=== PATIENT | male | born 1945 | race Caucasian/White ===

== ENCOUNTER 2020-05-02 00:55 | Outpatient (CLI) | payer OTHER, SELFPAY ==
--- NOTE | 2020-05-02 10:30 | DI.NM_ITS ---
APPROVED REPORT Exam: Pharmacologic Patient Location: Out-Patient Room/Bed: Stress Nurse: Celia Sotelo RN BMI: 20.67 Baseline Rhythm: [employer] RBBB Medical History Medical History: CAD s/p stent, HTN, Hyperlipidemia, Obstructive sleep apnea, RBBB, , PAD, PAD Cardiac Medications: Atorvastatin/ Lipitor, Clopidogrel/ Plavix, Lisinopril, Metoprolol Succinate, sp ironolactone , Allergies: No known drug allergies Cardiac Risk Factors: HTN, Hyperlipidemia, FHX of CAD, Smoking, PVD, CVD Previous Cardiac Procedures: PCI Pretest Chest Pain Characteristics: No chest pain Exercise History: Indeterminate Physical Disabilities: Back Lung Sounds: Clear to auscultation Heart Sounds: Regular Stress Test Details Test: Pharmacologic stress testing performed using 0.4 mg of regadenoson per 5 mL given IV over 10 s econds. Reason for pharmacologic stress test: physical limitation. Nuclear Acquisition: Rest Tc-99m/Stress Tc-99m 1 day Rest Isotope: Tc-99m Sestamibi. Dose: 11 Date: 05/02/2020 Injection Time: 1040 Stress Isotope: Tc-99m Sestamibi. Dose: 37 Date: 05/02/2020 Injection Time: 1255 HR Resting HR Supine: 61 bpm Max Heart Rate (APMHR): 143 bpm Target HR (85% APMHR): 121 bpm Max HR Achieved: 83 bpm % of APMHR: 58 Recovery HR: 77 bpm HR response to stress: Normal HR response to stress BP Resting BP Supine: 122/76 mmHg Max BP: 122/76 mmHg Recovery BP: 118/74 mmHg BP response to stress: Normal blood pressure response to stress. ECG Resting ECG: Sinus Rhythm Stress ECG: Sinus Rhythm ST Change: Normal Maximum ST Deviation: 1.5 mm Arrhythmia: None Recovery ECG: Sinus Rhythm Recovery ST Change: Normal Recovery Arrhythmia: None Clinical Exercise duration: 5 min59 sec Exercise capacity: 1 METs Stress ECG Conclusion 1. Caudal stress test. 2. Patient no symptoms suggestive of ischemia 3. EKG portion of this exam was nondiagnostic. Critical Notification Critical Value: No MPI Conclusion Patient's ejection fraction was 24% with stress. There is global hypokinesis. There is a large fixed anteroseptal and apical perfusion defect consistent with infarct. There is no angeli-infarct ischemia. Radiologist Interpretation Radiologist agrees with Electronics Engineering Manager's Interpretation. Radiologist Interpretation by: Yosef Santiago MD Interpretation Date/Time: 05/03/2020 08:01:35
[2020-05-02] MEDS: Regadenoson 0.4 MG/5 ML SYR IVP (12:51)
== END 2020-05-02 01:15 ==
PROVIDERS: PCP Internal Medicine; Visit Provider Internal Medicine Interventional Cardiology
DX: I25.119 Atherosclerotic heart disease of native coronary artery with unspecified angina pectoris (principal); Z95.5 Presence of coronary angioplasty implant and graft; I10 Essential (primary) hypertension; E78.5 Hyperlipidemia, unspecified; G47.33 Obstructive sleep apnea (adult) (pediatric); I45.10 Unspecified right bundle-branch block; I73.9 Peripheral vascular disease, unspecified; F17.200 Nicotine dependence, unspecified, uncomplicated
CPT/HCPCS: 78452; 93016; 93018; 93017; J2785

== ENCOUNTER 2021-02-04 07:08 | Outpatient (CLI) | payer MEDICARE, SELFPAY ==
[2021-02-04 14:29] LABS: BUN 19 mg/dL (7-18); CREATININE 1.1 mg/dL (0.70-1.30)
--- NOTE | 2021-02-04 15:15 | DI.CT_ITS ---
Exam(s) CT NECK CHEST W EXAM: CT NECK CHEST W CLINICAL HISTORY: TONSIL ASYMMETRY, J35.8 TECHNIQUE: COMPARISON: No exams were available for comparison FINDINGS: CT examination of the chest and CT examination of the cervical region were performed with intravenous infusion of 140 cc of Omnipaque 350 total. Images obtained through the upper abdomen show unremarkable appearance of visualized portions the john er spleen adrenals and kidneys except for few calcified splenic granulomas. Pancreas appears intact. No biliary dilatation. There is a large hiatal hernia. There are multiple calcific subcarinal lymph nodes and a number of calcified left hilar lymph nodes a re also present, calcified left lower nodules are also seen, findings are consistent with healed gran ulomatous disease. No additional mediastinal adenopathy seen. Thyroid is enlarged and contains numerous masses, the largest homogeneous 3.6 cm in diameter transaxi al mass. The lungs are clear. There is no evidence of pulmonary embolic disease. No thoracic aorti c aneurysm. Tracheobronchial tree appears intact. No pleural effusion. No cervical mass or adenopathy identified. Submandibular and parotid glands appear intact. Apart fr om mild arterial wall calcification there is no significant vascular lesion identified. There is asy mmetry of the palatine tonsils with a prominent left palatine tonsil containing areas of decreased at tenuation, tonsillar abscess or mass not excluded. Areas of decreased attenuation also seen in right palatine tonsil, no additional isaac pharyngeal nasopharyngeal or hypo pharyngeal mass identified. No discrete mass of the palatine tonsils is seen but the areas of decreased attenuation measure up to a bout 16 millimeters in diameter on the left and up to about 10 millimeters in diameter on the right i n trans axial scanning. IMPRESSION: Asymmetry of the palatine tonsils with vaguely masslike appearance, no discrete borders. Areas of de creased attenuation are present bilaterally, abscess versus mass, tissue sampling should be considere d. No additional cervical mass or adenopathy. Marked enlargement of the thyroid with multiple thyroid masses identified, thyroid ultrasound suggest ed for correlation. No other significant findings in the chest or neck. RADIATION DOSE DELIVERED: 728.53mGy.cm Total DLP RADIATION OPTIMIZATION: All CT scans at this facility use at least one of these dose optimization te chniques: automated exposure control; mA and/or kV adjustment per patient size (includes targeted exa ms where dose is matched to clinical indication); or iterative reconstruction.
[2021-02-04] MEDS: Omnipaque 350 MG/ML 100 ML BTL IJ (15:53)
[2021-02-04] MEDS: Normal Saline - Diluent 50 ML VIAL IV (15:55)
== END 2021-02-04 07:28 ==
PROVIDERS: PCP Internal Medicine; Visit Provider Physician Assistant
DX: J35.8 Other chronic diseases of tonsils and adenoids (principal); E04.2 Nontoxic multinodular goiter; E07.89 Other specified disorders of thyroid; K44.9 Diaphragmatic hernia without obstruction or gangrene
CPT/HCPCS: 70491; 84520; 71260; 82565; J3490